=== PATIENT | female | born 1960 | race Caucasian/White ===

== ENCOUNTER 2022-10-07 09:09 | Day surgery (SDC) | payer OTHER ==
[~2022-10-07] VITALS: Ht 157.5 cm; Wt 105.2 kg
[~2022-10-07 09:09] MED LIST: ceFAZolin SODIUM 2 GM in D5W 100 ML IV ONE
[2022-10-07] MEDS ORDERED: PROPOFOL 200MG/ 20ML VIAL (DIPRIVAN) IV ONE (13:15)
[2022-10-07] MEDS ORDERED: LR 1,000 ML IV.SOLN IV ONE (13:15)
[2022-10-07] MEDS ORDERED: ONDANSETRON HCL 4 MG/2 ML VIAL ONE (13:15)
[2022-10-07] MEDS ORDERED: ROCURONIUM BROMIDE 10 MG/ML (ZEMURON) ONE (13:15)
[2022-10-07] MEDS ORDERED: SUCCINYLCHOLINE CHLORIDE 20 MG/ML(QUELICIN) ONE (13:15)
[2022-10-07] MEDS ORDERED: MEPERIDINE 50 MG/ML VIAL ONE (13:15)
[2022-10-07] MEDS ORDERED: NS IRRIG SOLN 1000 ML IR ONE (13:15)
[2022-10-07] MEDS ORDERED: SUGAMMADEX SODIUM 200 MG/2 ML VIAL IV ONE (13:15)
[2022-10-07] MEDS ORDERED: BUPIVACAINE /PF 0.5% 30 ML VIAL ONE (13:15)
[2022-10-07] MEDS ORDERED: fentaNYL CITRATE/PF 100 MCG/2 ML AMP ONE (13:15)
[2022-10-07] MEDS ORDERED: SEVOFLURANE 15 MIN GAS INH ONE (13:15)
[2022-10-07] MEDS ORDERED: BUPIVACAINE LIPOSOME/PF 266 MG/20 ML VIAL INFIL ONE (13:34)
[2022-10-07] MEDS ORDERED: PERC10 PO ×2 (13:39→16:17)
[2022-10-07] MEDS ORDERED: NEU300 PO ×2 (13:39→16:17)
[2022-10-07] MEDS ORDERED: PRO40 PO ×2 (13:39→16:17)
[2022-10-07] MEDS ORDERED: GABA300S PO (13:39)
[2022-10-07] MEDS ORDERED: GABA-529 PO (13:39)
[2022-10-07] MEDS ORDERED: MORP15TA60 PO ×2 (13:39→16:17)
[2022-10-07] MEDS ORDERED: METH-634 PO (13:39)
[2022-10-07] MEDS ORDERED: DULO60CA42 PO ×2 (13:39)
[2022-10-07] MEDS ORDERED: PREG200C28 PO (13:39)
[2022-10-07] MEDS ORDERED: PRAM1TAB4 PO ×2 (13:39→16:43)
[2022-10-07] MEDS ORDERED: METOCLOPRAMIDE HCL 10 MG/2 ML VIAL IVP PRN (14:00)
[2022-10-07] MEDS ORDERED: HYDROmorphone 1 MG/ML INJ. CARTRIDGE IVP PRN ×2 (14:00→15:30)
[2022-10-07] MEDS ORDERED: LR 1,000 ML IV SCH ×2 (14:00→18:00)
[2022-10-07] MEDS ORDERED: KETOROLAC TROMETHAMINE 30 MG VIAL IVP PRN (14:00)
[2022-10-07] MEDS ORDERED: MEPERIDINE HCL/PF 25 MG/ML DISP.SYRIN IVP PRN (14:00)
[2022-10-07] MEDS ORDERED: ONDANSETRON HCL 4 MG/2 ML VIAL IVP PRN ×2 (14:00→15:30)
[2022-10-07] MEDS ORDERED: ACETAMINOPHEN 325 MG TABLET PO PRN ×2 (15:30)
[2022-10-07] MEDS ORDERED: HYDROcodone/ACETAMIN 5-325 MG TAB (NORCO/ VICODIN) PO PRN (15:30)
[2022-10-07] MEDS ORDERED: MORPHINE 4 MG INJ. 4 MG/ML VIAL IVP PRN (15:30)
[2022-10-07] MEDS ORDERED: KETOROLAC TROMETHAMINE 30 MG VIAL ONE (15:43)
[2022-10-07] MEDS ORDERED: DULO60CA65 PO (16:17)
[2022-10-07] MEDS ORDERED: LYR50 PO (16:17)
[2022-10-07] MEDS ORDERED: PRAM1TAB5 PO (16:17)
[2022-10-07 18:25] VITALS: BP_SYST 121
[2022-10-07] MEDS ORDERED: NALOXONE HCL 0.4 MG/ML AMP (NARCAN) IVP PRN (18:30)
[2022-10-07] MEDS: CEFAZOLIN 1 GM IVPB PREMIX 50 ML IV SCH (18:30)
[2022-10-07 20:20] VITALS: BP_SYST 133
[2022-10-07] MEDS: OXYCODONE/ACETAMINOPHEN *10*mg/325 mg TABLET PO PRN (20:53)
[2022-10-07] MEDS: PRAMIPEXOLE DI-HCL 1 MG TABLET PO SCH (21:00)
[2022-10-07] MEDS ORDERED: GABAPENTIN 100 MG CAPSULE PO SCH (21:00)
[2022-10-07] MEDS: DOCUSATE SODIUM 250 MG CAPSULE PO SCH (21:00)
[2022-10-07] MEDS: GABAPENTIN 300 MG CAPSULE PO SCH (21:00)
[2022-10-07] MEDS ORDERED: SENNOSIDES 8.6 MG TABLET PO SCH (21:00)
[2022-10-07] MEDS ORDERED: methocarbamoL 500 MG TABLET PO SCH (21:00)
[2022-10-08] MEDS: MORPHINE SULFATE 15 MG TABLET.ER PO SCH ×2 (00:48→10:13)
[2022-10-08 01:32] VITALS: BP_SYST 139
[2022-10-08] MEDS: CEFAZOLIN 1 GM IVPB PREMIX 50 ML IV SCH ×2 (02:30→10:24)
[2022-10-08] MEDS: OXYCODONE/ACETAMINOPHEN *10*mg/325 mg TABLET PO PRN (04:20)
[2022-10-08 08:00] VITALS: BP_SYST 135
[2022-10-08] MEDS ORDERED: PANTOPRAZOLE SODIUM 40 MG TAB PO SCH (09:00)
[2022-10-08] MEDS ORDERED: DULoxetine HCL 30 MG CAPSULE.DR (CYMBALTA) PO SCH ×2 (09:00)
[2022-10-08] MEDS: GABAPENTIN 300 MG CAPSULE PO SCH (10:13)
[2022-10-08] MEDS: DOCUSATE SODIUM 250 MG CAPSULE PO SCH (10:13)
[2022-10-08] MEDS: PRAMIPEXOLE DI-HCL 1 MG TABLET PO SCH (12:51)
[2022-10-08 13:08] VITALS: BP_SYST 135
== END 2022-10-08 13:45 | disposition home or self-care (01) ==
LOC: SDS 09:09 → SMU 09:13 → SDS 10-08 13:45
PROVIDERS: ATTEND Surgery
DX: K43.0 Incisional hernia with obstruction, without gangrene (principal); M79.7 Fibromyalgia; G89.29 Other chronic pain; E66.9 Obesity, unspecified; F32.A Depression, unspecified; M19.90 Unspecified osteoarthritis, unspecified site; Z88.1 Allergy status to other antibiotic agents; Z88.8 Allergy status to other drugs, medicaments and biological substances
CPT/HCPCS: 87081; 49616; 36415; 88302; 88305; 87426; J3490 ×2; C9290; J0690 ×3; J1885; J2405 ×2; J2704; J0330; J3010; J2175; J2270; J7060; J7120; C1781